=== PATIENT | female | born 1985 | race Caucasian/White ===

== ENCOUNTER 2021-01-22 18:40 | Emergency (ER) | payer MEDICAID, SELFPAY ==
[2021-01-22 18:51] VITALS: BP 152/107; PULSE 102; RESP 16; TEMP 36.6; O2SAT 99
--- NOTE | 2021-01-22 18:51 | PC.NURSE ---
in br to obtain ua spec.
--- NOTE | 2021-01-22 19:27 | ED.FEMALEGU ---
HPI - Female Genitourinary General Chief complaint: Urogenital-Female Stated complaint: UTI Time Seen by Provider: 01/22/21 19:10 Source: patient, RN notes reviewed and old records reviewed Mode of arrival: ambulatory Limitations: no limitations History of Present Illness HPI Narrative: 36 year old female who presents to [facility] care with complaints of UTI symptoms of painful urination and left flank pain which started this morning. Patient reports that symptoms are similar to past UTI. Patient states that she has not taken any AZO OTC. Patient denies any fevers, chills or sweats, denies any suprapubic pain or cramping. She reports no vaginal discharge or itching or any concern for STD's. MD elicited complaint: dysuria and flank pain (left) Related Data Home Medications Medication Instructions Recorded Confirmed Humira 01/22/21 NuvaRing 01/22/21 Zoloft 01/22/21 hydroxyzine HCl 01/22/21 Allergies Allergy/AdvReac Type Severity Reaction Status Date / Time No Known Allergies Allergy Verified 01/22/21 19:00 Review of Systems Review of Systems: CONSTITUTIONAL: Denies fever, chills, or sweats. EYES: Denies visual changes, redness, or discharge. ENT: Denies rhinorrhea, congestion, sore throat, or otalgia. CARDIOVASCULAR: Denies chest pain, palpitations, or edema. RESPIRATORY: Denies cough or dyspnea. GASTROINTESTINAL: Denies abdominal pain, nausea, vomiting, or diarrhea. GENITOURINARY: Positive dysuria or hematuria. SKIN: Denies rash or itching. MUSCULOSKELETAL: Positive for left flank pain, no joint pain, or myalgia. NEUROLOGIC: Denies headache, numbness, or weakness. PSYCHIATRIC: Denies anxiety or depression. All systems reviewed & are unremarkable except as noted in HPI and below PMFSH Past Medical History Medical History (Updated 01/25/21 @ 08:47 by Francheska Sanabria NP) Crohn's disease Eczema Incisional hernia surgical repair UTI (urinary tract infection) Surgical History Surgical History (Updated 01/25/21 @ 08:46 by Francheska Sanabria NP) History of bowel resection History of cholecystectomy Hx of appendectomy Family History Family History (Updated 01/25/21 @ 08:46 by Francheska Sanabria NP) Mother Hypertension Grandparent Crohn's colitis Asthma Father Kidney stones Social History Social History (Updated 01/22/21 @ 19:42 by Francheska Sanabria NP) Smoking status: Current every day smoker Tobacco type: cigarettes Alcohol intake: current Alcohol use details: rare Substance use: never Living arrangements: with family Gender identity (if verbalized by the patient): Female Comments At time of signature, agree with nursing past medical, surgical, social and family history. There is no relevant family history pertinent to the presenting complaint Exam Narrative: GENERAL: Well-appearing, well-nourished, and in no acute distress. HEAD: Normocephalic, atraumatic. EYES: PERRLA and EOMI. ENT: Nares clear, no rhinorrhea or epistaxis. Mucous membranes moist. TM's normal with good light reflex, throat has no lesions, exudates or tonsil enlargement NECK: Supple.no lymphadenopathy CHEST: Clear to auscultation. No respiratory distress.SAO2 99% on room air HEART: Regular rate and rhythm. No murmur heard. Normal peripheral pulses. ABDOMEN: Soft, nontender, nondistended, normal active bowel sounds.Positive for left flank pain on exam with painful urination EXTREMITIES: Normal range of motion. No edema. SKIN: Warm, dry, no rash. NEURO: No focal deficits. Alert and oriented x3. Course Vital Signs Vital signs: Vital Signs Temperature 36.6 C 01/22/21 18:51 Pulse Rate 102 H 01/22/21 18:51 Respiratory Rate 16 01/22/21 18:51 Blood Pressure 152/107 H 01/22/21 18:51 Pulse Oximetry 99 01/22/21 18:51 Temperature 36.6 C 01/22/21 18:51 Pulse Rate 102 H 01/22/21 18:51 Respiratory Rate 16 01/22/21 18:51 Blood Pressure 152/107 H 01/22/21 18:51 Pulse Oximetry
== END 2021-01-22 19:51 | disposition home or self-care (01) ==
PROVIDERS: Emergency Provider Registered Nurse; PCP Family Medicine
DX: N39.0 Urinary tract infection, site not specified (principal); K50.90 Crohn's disease, unspecified, without complications; F17.210 Nicotine dependence, cigarettes, uncomplicated
CPT/HCPCS: 81003; 87077; 87086; 87088; 87186; 99203; G0463

== ENCOUNTER 2022-03-11 08:07 | Emergency (ER) | payer BC, MEDICAID, SELFPAY ==
--- NOTE | 2022-03-11 08:18 | ED.URI ---
HPI - URI/Sore Throat General Chief Complaint: Upper Respiratory Infection Stated Complaint: cough Time Seen by Provider: 03/11/22 08:25 Source: patient, RN notes reviewed and old records reviewed Mode of arrival: ambulatory Limitations: no limitations History of Present Illness HPI Narrative: 37 year old female who presents to [facility] care with complaints of cough, body aches head congestion sore throat for the past 6 days. Patient states she has been taking NyQuil [id number] did take some of her sumatriptan for headache pain without relief. Patient reports she has taken 2 home COVID test which were both were negative with last one taken yesterday. Patient did have a flu shot last year but has not been COVID vaccinated.Patient is on Humira for Crohn's MD elicited complaint: cough Pertinent past history: immunosuppression (On Humira for Crohn's) Onset (ago): day(s) (6) Pain scale (0-10): 5 Exacerbating factors: swallowing Treatments prior to arrival: other (NyQuil, migraine medication) Related Data Home Medications Medication Instructions Recorded Confirmed adalimumab 40 mg/0.4 mL 40 mg subcut WEEKLY 03/11/22 03/11/22 subcutaneous pen kit (Humira(CF) Pen) desogestrel 0.15 mg-ethinyl 1 tablet PO DAILY 03/11/22 03/11/22 estradiol 0.03 mg tablet (Isibloom) hydroxyzine HCl 10 mg tablet 20 mg PO DAILY 03/11/22 03/11/22 sertraline 50 mg tablet 50 mg PO DAILY 03/11/22 03/11/22 sumatriptan succinate 100 mg tablet 100 mg PO PRN PRN Migraine Headache 03/11/22 03/11/22 Allergies Allergy/AdvReac Type Severity Reaction Status Date / Time No Known Allergies Allergy Verified 03/11/22 08:49 Review of Systems Review of Systems: CONSTITUTIONAL: Reports that she has malaise, some chills, sweats, highest fever 99F EYES: Denies visual changes, redness, or discharge. ENT: Reports rhinorrhea, congestion, sinus pain,no otalgia positive sore throat. CARDIOVASCULAR: Denies chest pain, palpitations, or edema. RESPIRATORY: Reports cough.? Denies dyspnea. GASTROINTESTINAL: Denies abdominal pain, nausea, vomiting, diarrhea SKIN: Denies rash or itching. MUSCULOSKELETAL: Denies myalgia. NEUROLOGIC: Positive for headache. All systems reviewed & are unremarkable except as noted in HPI and below PMFSH Past Medical History Medical History Crohn's disease Eczema Incisional hernia surgical repair UTI (urinary tract infection) Surgical History Surgical History History of bowel resection History of cholecystectomy Hx of appendectomy Family History Family History Mother Hypertension Grandparent Crohn's colitis Asthma Father Kidney stones Social History Social History Smoking status: Current every day smoker Tobacco type: cigarettes Alcohol intake: current Alcohol use details: rare Substance use: never Gender identity (if verbalized by the patient): Female Comments At time of signature, agree with nursing past medical, surgical, social and family history. There is no relevant family history pertinent to the presenting complaint Exam Narrative: GENERAL: Well-appearing, well-nourished, and in no acute distress. HEAD: Normocephalic EYES: PERRLA, conjunctivae clear ENT: Nares clear, turbinates edematous and erythematous, clear discharge. Mucous membranes moist. TM pearly baxter with dull light reflex bilaterally; no tragal tenderness. Oropharynx erythematous without lesions. Uvula red and swollen, tonsils not present and without exudate, no drooling, Positive for hoarseness, no trismus, uvula midline. NECK: Supple. lymphadenopathy CHEST: Clear to auscultation, breath sounds equal. No wheezing, rhonchi, rales, or stridor. No respiratory distress, speaks in full sentenc
[2022-03-11 08:19] VITALS: BP 135/90; PULSE 105; RESP 16; TEMP 36.6; O2SAT 99
== END 2022-03-11 09:04 | disposition home or self-care (01) ==
PROVIDERS: Emergency Provider Registered Nurse; PCP Family Medicine
DX: J06.9 Acute upper respiratory infection, unspecified (principal); F17.210 Nicotine dependence, cigarettes, uncomplicated; K50.90 Crohn's disease, unspecified, without complications
CPT/HCPCS: 87081; 87880; 99213; G0463

== ENCOUNTER 2023-05-15 13:02 | Outpatient (CLI) | payer BC, SELFPAY ==
[2023-05-15 13:39] LABS: Hematocrit 36.5 % (37.0-47.0); Hemoglobin 11.9 g/dL (12.0-15.0)
== END 2023-05-15 13:03 | disposition home or self-care (01) ==
LOC: ANHSURGERY 13:06
PROVIDERS: PCP Family Medicine; Visit Provider Obstetrics & Gynecology
DX: Z01.818 Encounter for other preprocedural examination (principal); N92.6 Irregular menstruation, unspecified
CPT/HCPCS: 36415; 85014; 85018

== ENCOUNTER 2023-06-05 03:24 | Day surgery (SDC) | payer BC, SELFPAY ==
[2023-05-13 11:30] VITALS: BMI 34.9
--- NOTE | 2023-05-13 11:35 | PC.NURSE ---
Addendum entered by Nya Sawyer RN 06/01/23 11:29: PT TO ARRIVE AT 1000 ON 06/05/23 FOR SURGERY AT 1200. MAXIMUM 20 OZ OF CLEAR LIQUIDS UNTIL 0900. Original Note: Report to the Outpatient Waiting Room, entrance under the green pavilion located off [facility], at time 6:15 on date 05/22/23. Planned Procedure Time: 8:15. Time changes happen often and if your time is changed the preop area will call you the afternoon before. - You and your visitor will be asked to self-screen and do not enter if you have any COVID symptoms. - A mask is optional within the hospital at this time. Patients may have clear liquids (water, carbonated beverages, clear teas, apple juice) until 3 hours prior to surgery (5:15) with a maximum of 20 ounces. - No food from midnight until time of surgery Take the following medications with a SIP of water the morning of surgery: NONE DO NOT STOP ANY OF YOUR OTHER PRESCRIPTION MEDICATIONS PRIOR TO SURGERY ?EXCEPT THE FOLLOWING Medications to discontinue per physician: N/A Date to take last dose: N/A Please no make-up, nail indonesian, hairspray, perfume, deodorant, or body powder the day of surgery. No jewelry (including any body piercings) or valuables the day of surgery, leave them at home. Please take a shower or bath the night before, or the morning of, surgery with an antibacterial soap. Wear comfortable, loose fitting clothing. - Jewelry must be removed prior to entering the operating room. Rings and piercings that are not removed may be cut off. - The hospital will not accept responsibility for valuables. - Please leave all valuables, including medications, at home the day of surgery. If you are going home after surgery, a licensed food service driver must drive you home. - NO public transportation without another adult if you receive anesthesia. - We recommend that an adult stay with you for 24 hours following discharge. - We also recommend that you do not drive, make important decision, drink alcoholic beverages, or take any drugs that were not prescribed by your health care provider for at least 24 hours after your discharge time. Follow any additional instructions given to you from your surgeon. If you or anyone in your household have experienced Covid symptoms in the past week, please notify your surgeon or the nurse liaison at the phone number below for possible testing. Telephone instructions given to PT - BRISSA CALL and asked if any additional questions and then verbalized understanding. Patient advised to call surgeon office or pre surgery nurse liaison [phone] if any additional questions.
--- NOTE | 2023-05-19 12:25 | PM.IMHP ---
H&P: HPI History of Present Illness Date/Time: 05/19/23 12:25 Chief Complaint: Irregular excessive bleeding and desires IUD Narrative: This is a 38-year-old female with excessive heavy bleeding and what appears to be a polyp ultrasound. She will undergo hysteroscopy dilatation curettage polyp polypectomy. She also have a Kyleena placed in risks and benefits of that reviewed in full. Risks and benefits of this procedure reviewed including not exclusive of , aspiration pneumonia, bleeding, transfusion, perforation injury to bowel, bladder, ureters, or other internal organs with need for open laparotomy. She received the ACOG handout entitled hysteroscopy as well as dilatation curettage. She had all questions answered. She asked to proceed PMFSH Past Medical History Medical History Crohn's disease Eczema Incisional hernia surgical repair UTI (urinary tract infection) Surgical History Surgical History History of bowel resection History of cholecystectomy Hx of appendectomy Family History Family History Mother Hypertension Grandparent Crohn's colitis Asthma Father Kidney stones Social History Social History Years smoked: 20 Smoking status: Current every day smoker Tobacco type: cigarettes and e-cigarettes/vaping Second hand tobacco smoke exposure: No Alcohol intake: current Alcohol use details: VERY RARE Substance use: never Substance use type: does not use Living arrangements: with family Gender identity (if verbalized by the patient): Female Spiritual care concerns: No Meds Home Medications and Allergies Home Medications Medication Instructions Recorded Confirmed Type adalimumab 40 mg/0.4 mL 40 mg subcut WEEKLY 03/11/22 05/13/23 History subcutaneous pen kit (Humira(CF) Pen) desogestrel 0.15 mg-ethinyl 1 tablet PO HS 05/13/23 05/13/23 History estradiol 0.03 mg tablet (Isibloom) hydroxyzine HCl 50 mg tablet 100 mg PO HS 05/13/23 05/13/23 History sertraline 100 mg tablet 100 mg PO HS 05/13/23 05/13/23 History Allergies Allergy/AdvReac Type Severity Reaction Status Date / Time No Known Allergies Allergy Verified 05/13/23 11:28 Exam Const: General: cooperative, healthy appearing, comfortable and overweight Orientation/consciousness: oriented to person, oriented to place and oriented to time HENMT: Head: normal to inspection Resp: Effort & Inspection: normal respiratory effort Cardio: Rate: regular rate Rhythm: regular rhythm Heart sounds: S1 normal heart sound present and S2 normal heart sound present GI: Inspection: normal to inspection : External Female Exam: normal external appearance Speculum Exam - Vagina: normal appearance of the vagina and vaginal bleeding Speculum Exam - Cervix: normal appearance of the cervix Bimanual exam- vagina & uterus: enlarged Bimanual Exam- Adnexa, other: normal adnexae Assessment and Plan Assessment and plan (1) Irregular bleeding: Code(s): N92.6 - Irregular menstruation, unspecified Status: Acute Plan Hysteroscopy/dilatation curettage/polypectomy/placement of Kyleena IUD
--- NOTE | 2023-06-01 11:30 | PC.NURSE ---
Pt states no changes in medications or health history since initial interview. New pre-op instructions reviewed with pt. Pt denies further questions at this time.
--- NOTE | 2023-06-03 10:22 | PM.IMHP ---
H&P: HPI History of Present Illness Date/Time: 06/03/23 10:22 Chief Complaint: Excessive bleeding with suspected uterine polyp Narrative: This is a 38-year-old female admitted for hysteroscopy dilatation curettage and polypectomy with placement of Kyleena afterwards. Risks benefits were reviewed in great detail. She had all questions answered. She asked to proceed PMF Past Medical History Medical History Crohn's disease Eczema Incisional hernia surgical repair UTI (urinary tract infection) Surgical History Surgical History History of bowel resection History of cholecystectomy Hx of appendectomy Family History Family History Mother Hypertension Grandparent Crohn's colitis Asthma Father Kidney stones Social History Social History Years smoked: 20 Smoking status: Current every day smoker Tobacco type: cigarettes and e-cigarettes/vaping Second hand tobacco smoke exposure: No Alcohol intake: current Alcohol use details: VERY RARE Substance use: never Substance use type: does not use Living arrangements: with family Gender identity (if verbalized by the patient): Female Spiritual care concerns: No Meds Home Medications and Allergies Home Medications Medication Instructions Recorded Confirmed Type adalimumab 40 mg/0.4 mL 40 mg subcut WEEKLY 03/11/22 06/01/23 History subcutaneous pen kit (Humira(CF) Pen) desogestrel 0.15 mg-ethinyl 1 tablet PO HS 05/13/23 06/01/23 History estradiol 0.03 mg tablet (Isibloom) hydroxyzine HCl 50 mg tablet 100 mg PO HS 05/13/23 06/01/23 History sertraline 100 mg tablet 100 mg PO HS 05/13/23 06/01/23 History Allergies Allergy/AdvReac Type Severity Reaction Status Date / Time No Known Allergies Allergy Verified 06/01/23 11:29 Exam Const: General: cooperative, healthy appearing and comfortable Nutritional Appearance: overweight Orientation/consciousness: oriented to person, oriented to place and oriented to time HENMT: Head: normal to inspection Resp: Effort & Inspection: normal respiratory effort Cardio: Rate: regular rate Rhythm: regular rhythm Heart sounds: S1 normal heart sound present and S2 normal heart sound present GI: Inspection: normal to inspection : External Female Exam: normal external appearance Speculum Exam - Vagina: normal appearance of the vagina Speculum Exam - Cervix: normal appearance of the cervix Bimanual exam- vagina & uterus: enlarged Bimanual Exam- Adnexa, other: normal adnexae Assessment and Plan Assessment and plan (1) Irregular bleeding: Code(s): N92.6 - Irregular menstruation, unspecified Status: Acute Plan Hysteroscopy/polypectomy/dilatation and curettage/placement of IUD
--- NOTE | 2023-06-05 06:35 | WPDHPUPDATE1 ---
History and Physical Update Update Date/Time: 06/05/23 06:35 History and Physical has been reviewed, including an updated exam of the patient. There are NO changes in the patient's condition. Risks, benefits, and alternatives have been discussed and questions answered. Patient agrees to proceed with procedure.
[2023-06-05] MEDS: ACETAMINOPHEN 500 MG TABLET 1000 MG PO (09:52)
[2023-06-05 10:02] VITALS: BP 140/97; PULSE 94; RESP 16; TEMP 36.1; O2SAT 99
--- NOTE | 2023-06-05 10:56 | WPDANESEPPF ---
Anes - Initial Pre Proc Eval Procedure: Operation Date: 06/05/23 12:00 Proposed Procedures p Hysteroscopy Dilation and Curettage with Polypectomy, Insertion of a Kyleena Intrauterine Device - Sachin Olivera MD Date/Time: 06/05/23 10:56 Surgeon: Sachin Olivera MD Pre Op Diagnosis: irregular bleeding, uterine polyp Patient Data Age: 38 Gender: F Height: 1.73 m Weight: 109.1 kg Last Vital Signs Temp 36.1 C L 06/05/23 10:02 Pulse 94 06/05/23 10:02 Resp 16 06/05/23 10:02 BP 140/97 H 06/05/23 10:02 Pulse Ox 99 06/05/23 10:02 O2 Del Method Room Air 06/05/23 10:02 Allergies Allergy/AdvReac Type Severity Reaction Status Date / Time No Known Allergies Allergy Verified 06/05/23 09:47 Home Medications Medication Instructions Recorded Confirmed Type adalimumab 40 mg/0.4 mL 40 mg subcut WEEKLY 03/11/22 06/01/23 History subcutaneous pen kit (Humira(CF) Pen) desogestrel 0.15 mg-ethinyl 1 tablet PO HS 05/13/23 06/01/23 History estradiol 0.03 mg tablet (Isibloom) hydroxyzine HCl 50 mg tablet 100 mg PO HS 05/13/23 06/01/23 History sertraline 100 mg tablet 100 mg PO HS 05/13/23 06/01/23 History hydrocodone 5 mg-acetaminophen 325 1 tablet PO Q4H PRN pain #30 tabs 06/05/23 Rx mg tablet Patient hx anesthesia problems: none Family hx anesthesia problems: none Results Review: All pre-operative results and documents have been reviewed as part of the pre-operative evaluation. [facility] Past Medical History Medical History Crohn's disease Eczema Incisional hernia surgical repair UTI (urinary tract infection) Surgical History Surgical History History of bowel resection History of cholecystectomy Hx of appendectomy Family History Family History Mother Hypertension Grandparent Crohn's colitis Asthma Father Kidney stones Social History Social History Years smoked: 20 Smoking status: Current every day smoker Tobacco type: cigarettes and e-cigarettes/vaping Second hand tobacco smoke exposure: No Alcohol intake: current Alcohol use details: VERY RARE Substance use: never Substance use type: does not use Living arrangements: with family Gender identity (if verbalized by the patient): Female Spiritual care concerns: No Anes - Eval Final PreProcedure Day of Procedure 06/05/23 10:56 Patient weight: obese Heart: regular rate and rhythm Lungs: clear to auscultation Airway: Mallampati scale class II Neurological: alert and oriented Last oral intake: >/= 8 hours ASA classification: III Emergent: no Anesthetic plan: proceed Anesthesia type and monitoring: general GIVS and standard monitoring Results Review: All pre-operative results and documents have been reviewed as part of the pre-operative evaluation. Informed Consent: The patient's anesthetic plan and its attendant risks and benefits were discussed with the patient/family/POA. Questions were solicited and answers provided to the satisfaction of the patient/family/POA.
[2023-06-05] MEDS: LACTATED RINGERS 1,000 ML 30 ML IV CONT (11:03)
[2023-06-05] MEDS: LIDOCAINE HCL 1% LOCAL INJ 20 ML VIAL 10 ML INFILTRATE (11:39)
[2023-06-05 11:50] VITALS: BP 144/86; PULSE 89; RESP 16
--- NOTE | 2023-06-05 11:50 | W.PM.PROC2 ---
Procedure Note - Detailed Date of Procedure 06/05/23 Pre-op Diagnosis irregular bleeding, uterine polyp Post-op Diagnosis Other (Irregular bleeding / uterine fibroid) Procedure Performed hysteroscopy/ dilatation curettage/ myomectomy / placement of Kyleena IUD Surgeon Sachin Olivera MD Anesthesia MAC and Local Indications this 38-year-old female with the uterine mass and desires IUD Findings small uterine fibroid in the uterus and some clots Description of Procedure patient was prepped draped in normal sterile fashion placed in the lithotomy position. Under excellent IV sedation weighted speculum placed in posterior fornix vagina. Anterior lip of the cervix grasped with single-tooth [place] 2.5cc of 1% xylocaine anesthesia placed at 2, 4, 8, 10:00 a.m. of the cervix. Uterus sounded to7.5cm. Serial dilatation with fragmented dilators performed followed by passage of the IV to hysteroscope. Clots were seen in these were evacuated. The small fibroid was seen on the posterior surface of the uterine wall and using the rotating instrument this was a ground down in the removed. The uterus was scraped over the entire 360? until good grating sound was heard. Instruments removed and the Kyleena was then placed sterilely in the uterus string cut to an inch there were no complications blood loss is 5cc Estimated Blood Loss 5 Drains No Packing No Pathology Yes Complications No immediate complications Condition Stable Disposition PACU
[2023-06-05 12:20] VITALS: BP 144/95; PULSE 85; RESP 16
[2023-06-05 12:50] VITALS: BP 148/94; PULSE 83; RESP 16
== END 2023-06-05 13:10 | disposition home or self-care (01) ==
PROVIDERS: PCP Family Medicine; Visit Provider Obstetrics & Gynecology
PROC: 0U5B8ZZ Destruction of Endometrium, Via Natural or Artificial Opening Endoscopic (ICD-10-PCS; CPT 58563; principal; 2023-06-05 12:00)
DX: N92.6 Irregular menstruation, unspecified (principal); D25.9 Leiomyoma of uterus, unspecified; F17.210 Nicotine dependence, cigarettes, uncomplicated; F17.290 Nicotine dependence, other tobacco product, uncomplicated; K50.90 Crohn's disease, unspecified, without complications
CPT/HCPCS: 58558; 58300; 88305; A9270; J2250; J2704; J3010; J7120